=== PATIENT | female | born 1980 | race Caucasian/White ===

== ENCOUNTER → 2017-07-04 | Outpatient (CLI) | payer BC | END | disposition home or self-care (01) | LOC: C.LABSPEC 10:10 | PROVIDERS: ATTEND Family Medicine | DX: N39.0 Urinary tract infection, site not specified (principal) ==

== ENCOUNTER → 2017-07-05 | Outpatient (CLI) | payer BC ==
--- NOTE | 2017-07-05 16:20 | DIAGNOSTIC IMAGING REPORT ---
ABD/PELVIS WITHOUT FOR STONE CLINICAL HISTORY: 36 years-old Female presenting with HEMATURIA. TECHNIQUE: Multidetector CT of the abdomen and pelvis was performed without the use of intravenous contrast. IV contrast: None. A dose lowering technique was used consistent with the principles of ALARA (as low as reasonably achievable). COMPARISON: 10/22/2010. CT DOSE (mGy.cm): The estimated cumulative dose is 1018.15 mGy.cm. FINDINGS: Batch Tester topogram: Bilateral fallopian tube occlusion devices noted. Lung bases: Lung bases clear. Normal heart size. No pericardial or pleural effusion. Liver: Normal morphology. Normal density. Biliary: No gross biliary ductal dilatation allowing for noncontrast technique. Normal gallbladder. Pancreas: Normal noncontrast appearance. Spleen: Normal noncontrast appearance. Adrenal glands: Normal noncontrast appearance. Kidneys and ureters: Normal noncontrast appearance. No nephrolithiasis. No hydronephrosis. Normal ureters. Bladder: Allowing for underdistention, mild circumferential bladder wall thickening suggested. Pelvic organs: A circular intravaginal device is in place likely representing a contraceptive medication administration medium. Bilateral fallopian tube occlusion devices. Bowel: Normal appendix. No bowel obstruction. Peritoneal cavity: No free fluid or intraperitoneal gas. Lymph nodes: No gross lymphadenopathy allowing for noncontrast technique. Vasculature: Normal noncontrast appearance. Abdominal wall: Normal. Musculoskeletal: Normal. IMPRESSION: 1. Mild circumferential bladder wall thickening could suggest cystitis. Correlate with urinalysis. No hydronephrosis or nephrolithiasis. Electronically signed by: Uziel Guevara M.D. 07/05/2017 4:18 PM Dictated Date/Time: 07/05/2017 4:14 PM
== END | disposition home or self-care (01) ==
LOC: C.CTS 15:35
PROVIDERS: ATTEND Family Medicine
DX: R31.9 Hematuria, unspecified (principal)

== ENCOUNTER → 2017-07-20 | Outpatient (CLI) | payer BC | END | disposition home or self-care (01) | LOC: C.PATHSPEC 17:12 | PROVIDERS: ATTEND Urology | DX: N30.21 Other chronic cystitis with hematuria (principal) ==

== ENCOUNTER → 2017-08-04 | Outpatient (CLI) | payer BC ==
[~2017-08-04] MED LIST: FUROSEMIDE 40 MG/4 ML VIAL IV ONE
--- NOTE | 2017-08-04 12:31 | DIAGNOSTIC IMAGING REPORT ---
RENAL SCAN DIURETIC (MAG 3) CLINICAL HISTORY: R31.0 Gross [id number] Renal [id number] hematuria. Pain. TECHNIQUE: Dynamic evaluation following the administration of 8.0 mCi technetium 99m MAG3. COMPARISON STUDY: CT abdomen and pelvis 07/05/2017 FINDINGS: Initial dynamic vascular flow images show normal uptake to both kidneys. Washout characteristics are unremarkable. There are no obstructive characteristics. Split differential renal function demonstrates the left to contribute 46% and the right 54%. IMPRESSION: Normal study The above report was generated using voice recognition software. It may contain grammatical, syntax or spelling errors. Electronically signed by: Alessandro Adler M.D. 08/04/2017 12:29 PM Dictated Date/Time: 08/04/2017 12:27 PM
== END | disposition home or self-care (01) ==
LOC: C.NUCL 10:13
PROVIDERS: ATTEND Urology
DX: R31.0 Gross hematuria (principal); N23 Unspecified renal colic